=== PATIENT | male | born 1990 | race Caucasian/White ===

== ENCOUNTER 2016-10-19 07:06 | Emergency (ER) | payer OTHER ==
[2016-10-19 07:20] VITALS: BP 138/63; PULSE 82; RESP 16; TEMP 98.3
--- NOTE | 2016-10-19 07:53 | ED ---
General Adult HPI - General Chief complaint: Abdominal Pain Stated complaint: Abdominal Pain Time Seen by Provider: 10/19/16 07:15 Source: patient, RN notes reviewed Mode of arrival: ambulatory Limitations: no limitations - History of Present Illness Initial comments: This is a 26-year-old male who presents to the emergency department complaining that he has reflux. Patient states he was in another state he was being treated for gastric reflux therapy has not taken his Prilosec because he does not have a primary medical care doctor. Patient states he's had these symptoms for over a year. Patient states he gets up in the morning feels a burning sensation in his upper abdomen and then he vomits stomach acid. Patient states it only happens every few mornings but it happened this morning so he thought he come in and get worked up. Patient currently denies any burning sensation patient denies any nausea patient denies any abdominal pain at this time. Patient states he was on his way to work and because he vomited he would be late for work saying he wants a work note as well. Patient denies any fever or chills. Patient denies any chest pain difficulty breathing or shortness of breath. Patient denies any recent headaches numbness or weakness. Patient denies any lightheadedness or dizziness - Related Data Home Medications Medication Instructions Recorded Confirmed Ibuprofen [Motrin] 800 mg PO Q6HR PRN 10/19/16 10/19/16 Allergies Allergy/AdvReac Type Severity Reaction Status Date / Time No Known Allergies Allergy Verified 10/19/16 07:30 Review of Systems ROS Statement: Those systems with pertinent positive or pertinent negative responses have been documented in the HPI. ROS Other: All systems not noted in ROS Statement are negative. Past Medical History Past Medical History: GERD/Reflux History of Any Multi-Drug Resistant Organisms: None Reported Past Surgical History: No Surgical Hx Reported Past Psychological History: No Psychological Hx Reported Smoking Status: Current every day smoker Past Alcohol Use History: Occasional Past Drug Use History: Marijuana General Exam - General Exam Comments Initial Comments: GENERAL: Patient is well-developed and well-nourished. Patient is nontoxic and well- hydrated and is in no acute distress. ENT: Neck is soft and supple. No significant lymphadenopathy is noted. Oropharynx is clear. Moist mucous membranes. Neck has full range of motion without eliciting any pain. EYES: The sclera were anicteric and conjunctiva were pink and moist. Extraocular movements were intact and pupils were equal round and reactive to light. Eyelids were unremarkable. PULMONARY: Unlabored respirations. Good breath sounds bilaterally. No audible rales rhonchi or wheezing was noted. CARDIOVASCULAR: There is a regular rate and rhythm without any murmurs gallops or rubs. ABDOMEN: Soft and nontender with normal bowel sounds. No palpable organomegaly was noted. There is no palpable pulsatile mass. SKIN: Skin is clear with no lesions or rashes and otherwise unremarkable. NEUROLOGIC: Patient is alert and oriented x3. Cranial nerves II through XII are grossly intact. Motor and sensory are also intact. Normal speech, volume and content. Symmetrical smile. MUSCULOSKELETAL: Normal extremities with adequate strength and full range of motion. No lower extremity swelling or edema. No calf tenderness. LYMPHATICS: No significant lymphadenopathy is noted PSYCHIATRIC: Normal psychiatric evaluation. Normal interpersonal interactions appears functionally intact in deals appropriately with others. No signs of depression. Limitations: no limitations Course Vital Signs 10/19/16 07:16 Temperature 98.3 F Pulse Rate 82 Respiratory 16 Rate Blood Pressure 138/63 O2 Sat by Pulse 97 Oximetry Disposition Clinical Impression: Gastroesophageal reflux Disposition: HOME SELF-CARE Condition: Good Instructions: Gastroesophageal Reflux Disease (ED) Additional Instructions: Patient should start taking Prilosec daily 20 mg by mouth Referrals: None,Stated [Primary Care Provider] - 1-2 days Time of Disposition: 07:53
== END 2016-10-19 08:00 | disposition home or self-care (01) ==
LOC: EC 07:06
DX: K21.9 Gastro-esophageal reflux disease without esophagitis (principal); F17.200 Nicotine dependence, unspecified, uncomplicated
CPT/HCPCS: 99283